=== PATIENT | female | born 1975 | race African-American/Black ===

== ENCOUNTER 2017-02-10 05:10 | Day surgery (SDC) | payer OTHER ==
[2017-02-06 15:30] VITALS: BMI 32.5
[2017-02-10] MEDS ORDERED: PROPOFOL 20 ML ONE (10:05)
[2017-02-10] MEDS ORDERED: MIDAZOLAM HCL 2 MG/2 ML SINGLE DOSE VIAL ONE ×2 (10:05→11:45)
[2017-02-10] MEDS ORDERED: LIDOCAINE HCL 2% (20ML MULTI-DOSE VIAL) NR ONE (10:05)
[2017-02-10] MEDS ORDERED: ROCURONIUM BROMIDE 50 MG/5 ML VIAL ONE (10:07)
[2017-02-10] MEDS ORDERED: KETOROLAC TROMETHAMINE 30 MG/1 ML VIAL ONE (12:11)
[2017-02-10] MEDS ORDERED: oxyCODONE HCL 5 MG TABLET PO PRN (12:44)
[2017-02-10] MEDS ORDERED: IBUPROFEN 800 MG/8 ML IJ IVPB PRN (12:44)
[2017-02-10] MEDS ORDERED: IBUPROFEN 600 MG TABLET (FP) PO PRN (12:44)
[2017-02-10] MEDS ORDERED: ONDANSETRON 4 MG/2 ML VIAL IVPB PRN (12:44)
[2017-02-10] MEDS ORDERED: ELECTROLYTE-148 SOLN 1,000 ML IV SCH (12:45)
--- NOTE | 2017-02-10 12:50 | HP ---
History & Physical Update - History History: No Change - Physical Physical: No Change - Assessment Assessment: No Change - Plan Plan: No Change (Consent signed and witnessed)
--- NOTE | 2017-02-10 12:55 | OP ---
Operative Note - Note: Operative Date: 02/10/17 Pre-Operative Diagnosis: 41 yo P3 with dysfunctional bleeding, history of endometrial hyperplasia Operation: Hysteroscopy/Polypectomy/D&C Findings: Overgrown endometrium, several endometrial polyps Bilateral ostia visualized Post-Operative Diagnosis: Same as Pre-op Surgeon: Briseida Ovalle Anesthesiologist/BURNER MACHINE OPERATOR: Ernie Alvares Anesthesia: MAC Specimens Removed: 1. Polyps. 2. Endometrial curettings Estimated Blood Loss (mls): 10 Drains & Tubes with Location: Fluid defficit 160cc Drains, Volume Out (mls): 75 Fluid Volume Replaced (mls): 400 Operative Report Dictated: Yes
[2017-02-10] MEDS ORDERED: PROMETHAZINE HCL 25 MG/1 ML VIAL IVPUSH PRN (12:57)
[2017-02-10] MEDS ORDERED: LACTATED RINGERS SOLUTION 1,000 ML IV SCH (13:00)
[2017-02-10 17:32] VITALS: BP 100/64; PULSE 68; TEMP 97.8
--- NOTE | 2017-02-11 13:38 | PATH ---
Surgical Pathology Report Patient Name: AMOS HERCULES [facility]. Rec. #: [id number] /Age/Gender: 1975 (Age: 41) / F Account: [id number] Location: [facility] SURGICAL Taken: 02/10/2017 Received: 02/10/2017 Reported: 02/11/2017 Physicians: Briseida Ovalle M.D. Specimen(s) Received A: ENDOMETRIAL CURETTINGS B: ENDOMETRIAL POLYP Clinical History Dysfunctional uterine bleeding, history of endometrial hyperplasia Final Diagnosis A. ENDOMETRIUM, CURETTING: FOCAL AREA OF SIMPLE ENDOMETRIAL HYPERPLASIA WITHOUT ATYPIA, ARISING IN A BACKGROUND OF PROLIFERATIVE ENDOMETRIUM WITH AREAS CONSISTENT WITH PORTIONS OF BENIGN ENDOMETRIAL POLYP, AND PORTIONS MYOMETRIAL TISSUE. AREAS OF ENDOMETRIUM WITH STROMAL BREAKDOWN ARE PRESENT. ENDOCERVICAL MUCOSA WITH CHRONIC INFLAMMATION AND SQUAMOUS METAPLASIA PRESENT. B. ENDOMETRIUM, POLYPECTOMY: BENIGN ENDOMETRIAL POLYP, AND ADDITIONAL PORTIONS OF PROLIFERATIVE ENDOMETRIUM WITH FOCAL STROMAL BREAKDOWN. Comment: Recommend correlation with clinical findings and follow up as clinically indicated. Electronically Signed Favian Rice M.D. Gross Description A. Received in formalin labeled "endometrial curetting" and a 4.5 x 3.5 x 0.4 cm aggregate of read red soft tissue fragments admixed with blood clot. The formalin is filtered and the specimen is entirely submitted in 3 cassettes. B. Received in formalin labeled "endometrial polyp," is a 1.3 x 1.3 x 0.4 cm aggregate of read-red soft tissue fragments. The formalin is filtered and the specimen is entirely submitted in one cassette. /02/10/201702/10/2017
--- NOTE | 2017-02-12 18:39 | OP ---
DATE OF OPERATION: 02/10/2017 PREOPERATIVE DIAGNOSIS: A 41-year-old para 3 with dysfunctional bleeding and history of endometrial hyperplasia. POSTOPERATIVE DIAGNOSIS: A 41-year-old para 3 with dysfunctional bleeding and history of endometrial hyperplasia. OPERATION: Hysteroscopy, polypectomy, dilation and curettage. FINDINGS: Overgrown endometrium with several endometrial polyps and endometrial scarring. Bilateral ostia visualized. SURGEON: Ketty Benjamin M.D. ANESTHESIOLOGIST: Ernie Alvares M.D. ANESTHESIA: MAC SPECIMENS: Removed: 1. Polyp. 2. Endometrial curettings. DESCRIPTION OF OPERATIVE PROCEDURE: After ensuring informed consent, patient was brought to the operating room where she was placed in dorsal lithotomy position. Perineum and vagina were prepped in the sterile fashion. Patient was draped. Bladder was emptied with red rubber catheter draining 75 mL of urine clear. Since speculums were placed in the anterior and posterior fornix, anterior cervical loop was articulated with single tooth tenaculum and cervix was gradually dilated with Pulido dilators up to gauge 19. The 5-mm, 30-degree scope was introduced into the uterus atraumatically and uterine contents were surveyed. The endometrium was found to be overgrown with several polyps, and scar tissue inside the serrated gauge 2 curet was used to remove polyps and perform endometrial curettage until the endometrium was found to be gritty. Hysteroscope was reintroduced into the uterus. Uterus was found to be intact and free of excessive tissue. All instruments were removed from the vagina. Fluid deficit was found to be 160 mL. Estimated blood loss 10 mL. Fluid replaced 400 mL. Patient was brought to the recovery room in stable condition and extubated. KETTY BENJAMIN M.D. SUNNY/[id number] MTDD
== END 2017-02-10 15:30 | disposition home or self-care (01) ==
LOC: JASU-SURG 05:10
PROVIDERS: ATTEND Obstetrics & Gynecology
PROC: 0UB98ZX Excision of Uterus, Via Natural or Artificial Opening Endoscopic, Diagnostic (ICD-10-PCS; principal; 2017-02-10 11:00)
PROC: 0UDB8ZX Extraction of Endometrium, Via Natural or Artificial Opening Endoscopic, Diagnostic (ICD-10-PCS; 2017-02-10 11:00)
DX: N93.8 Other specified abnormal uterine and vaginal bleeding (principal); N84.0 Polyp of corpus uteri
CPT/HCPCS: 84703; 88305-TC; 94760

== ENCOUNTER 2018-07-03 08:40 | Emergency (ER) | payer OTHER ==
[2018-07-03] MEDS ORDERED: IBUPROFEN 600 MG TABLET (FP) PO ONE ×2 (08:56→08:59)
[2018-07-03] MEDS ORDERED: PSEUDOEPHEDRINE HCL 30 MG TABLET ONE (08:59)
[2018-07-03] MEDS ORDERED: PSEUDOEPHEDRINE HCL 30 MG TABLET PO ONE (09:00)
--- NOTE | 2018-07-03 09:01 | PDOC ---
History of Present Illness - General Chief Complaint: Sore Throat Stated Complaint: SORE THROAT,COUGH Time Seen by Provider: 07/03/18 08:45 History Source: Patient Exam Limitations: No Limitations - History of Present Illness Initial Comments: 07/03/18 08:57 42 female no past medical history here today complaining of cough and nasal congestion for 2 days. Denies fevers chills no nausea no vomiting has not taking anything for her symptoms prior to arrival. No sick contacts or travel patient states her cough was productive of some phlegm did notice some faint blood streaks today no history of asthma does smoke occasionally Past History - Past Medical History Allergies/Adverse Reactions: Allergies Allergy/AdvReac Type Severity Reaction Status Date / Time No Known Allergies Allergy Verified 07/03/18 08:41 Home Medications: Ambulatory Orders Levonorgestrel [Mirena] 1 each IY ASDIR 07/03/18 Anemia: No Asthma: No Cancer: No Cardiac Disorders: No CVA: No COPD: No CHF: No Dementia: No Diabetes: No GI Disorders: No Disorders: No HTN: No Hypercholesterolemia: No Liver Disease: No Seizures: No Thyroid Disease: No - Surgical History Abdominal Surgery: Yes Appendectomy: No Cardiac Surgery: No Cholecystectomy: Yes Lung Surgery: No Neurologic Surgery: No Orthopedic Surgery: Yes (Left 5th toe surgery,Left Knee Arthroscopy) - Reproductive History Cervical CA: No Dysfunctional Uterine Bleeding: No Ectopic : No Polycystic Ovaries: No Tubal Ligation: No - Suicide/Smoking/Psychosocial Hx Smoking Status: Yes Smoking History: Current some day smoker Have you smoked in the past 12 months: Yes Number of Cigarettes Smoked Daily: 0 If you are a former smoker, when did you quit?: one week ago Information on smoking cessation initiated: Yes 'Breaking Loose' booklet given: 07/03/18 Hx Alcohol Use: No Drug/Substance Use Hx: No Substance Use Type: None Hx Substance Use Treatment: No Review of Systems - Review of Systems Constitutional: No: Chills, Diaphoresis, Fever HEENTM: Yes: Nose Congestion, Throat Pain Respiratory: Yes: Cough Cardiac (ROS): No: Chest Pain Neurological: No: Headache, Numbness Psychiatric: No: Depression All Other Systems: Reviewed and Negative *Physical Exam - Vital Signs Last Vital Signs Temp Pulse Resp BP Pulse Ox 98.5 F 97 H 20 127/85 100 07/03/18 08:41 07/03/18 08:41 07/03/18 08:41 07/03/18 08:41 07/03/18 08:41 - Physical Exam Comments: 07/03/18 08:58 Awake alert no acute distress throat no tonsillar exudates no urinary erythema uvula is midline lungs are clear bilaterally no wheezes no crackles appreciated heart is regular without any murmurs rubs or gallops extremities are warm and well-perfused legs no edema skin warm dry no rash neurologically alert and oriented 3 gait is normal speech is clear ED Treatment Course - RADIOLOGY Radiology Studies Ordered: Category Date Time Status CHEST PA & LAT [RAD] Stat Radiology 07/03/18 08:54 Ordered Medical Decision Making - Medical Decision Making 07/03/18 08:59 Differential diagnosis includes viral URI, viral pharyngitis, pneumonia plan x- ray will treat nasal congestion with Sudafed Motrin for the patient's throat pain if x-rays negative likely DC home with follow-up with her PCP *DC/Admit/Observation/Transfer - Discharge Dispostion Condition at time of disposition: Improved - Referrals - Patient Instructions Printed Discharge Instructions: DI for Viral Upper Respiratory Infection -- Adult Additional Instructions: you can take Motrin 600 mg for your pain every 6-8 hours as needed take with food. Drink plenty of liquids get plenty of rest. He continues any over-the- counter medications for cough and cold like symptoms return for any high fever or shortness of breath chest pains persistent vomiting or any concerns - Post Discharge Activity
[2018-07-03 09:02] VITALS: BP 127/85; PULSE 97; TEMP 98.5; BMI 34.0
== END 2018-07-03 09:31 | disposition home or self-care (01) ==
LOC: FER 08:40
DX: F17.210 Nicotine dependence, cigarettes, uncomplicated (principal); R05 Cough
CPT/HCPCS: 71046-TC-FY; 99282-25

== ENCOUNTER 2018-11-09 23:03 | Emergency (ER) | payer BC, OTHER ==
[2018-11-09 23:13] VITALS: BP 117/76; PULSE 117; TEMP 98.9; BMI 31.7
[2018-11-10] MEDS ORDERED: SODIUM CHLORIDE 1,000 ML IV STA (01:21)
[2018-11-10] MEDS ORDERED: ONDANSETRON 4 MG/2 ML VIAL IVPUSH STA (01:21)
--- NOTE | 2018-11-10 01:21 | PDOC ---
History of Present Illness - General Chief Complaint: Nausea/Vomiting Stated Complaint: VOMITING Time Seen by Provider: 11/10/18 00:26 Past History - Past Medical History Allergies/Adverse Reactions: Allergies Allergy/AdvReac Type Severity Reaction Status Date / Time No Known Allergies Allergy Verified 11/09/18 23:13 Home Medications: Ambulatory Orders Ibuprofen [Motrin -] 600 mg PO TID PRN #90 tablet MDD 3 07/03/18 Levonorgestrel [Mirena] 1 each IY ASDIR 07/03/18 Anemia: No Asthma: No Cancer: No Cardiac Disorders: No CVA: No COPD: No CHF: No Dementia: No Diabetes: No GI Disorders: No Disorders: No HTN: No Hypercholesterolemia: No Liver Disease: No Seizures: No Thyroid Disease: No - Surgical History Abdominal Surgery: Yes Appendectomy: No Cardiac Surgery: No Cholecystectomy: Yes Lung Surgery: No Neurologic Surgery: No Orthopedic Surgery: Yes (Left 5th toe surgery,Left Knee Arthroscopy) - Reproductive History Cervical CA: No Dysfunctional Uterine Bleeding: No Ectopic : No Polycystic Ovaries: No Tubal Ligation: No - Suicide/Smoking/Psychosocial Hx Smoking Status: Yes Smoking History: Never smoked Have you smoked in the past 12 months: No Number of Cigarettes Smoked Daily: 0 If you are a former smoker, when did you quit?: one week ago Information on smoking cessation initiated: No 'Breaking Loose' booklet given: 07/03/18 Hx Alcohol Use: Yes (social) Drug/Substance Use Hx: No Substance Use Type: None Hx Substance Use Treatment: No *Physical Exam - Vital Signs Last Vital Signs Temp Pulse Resp BP Pulse Ox 98.9 F 117 H 18 117/76 100 11/09/18 23:11 11/09/18 23:11 11/09/18 23:11 11/09/18 23:11 11/09/18 23:11 Moderate Sedation - Procedure Monitoring Vital Signs: Procedure Monitoring Vital Signs Temperature 98.9 F 11/09/18 23:11 Pulse Rate 117 H 11/09/18 23:11 Respiratory Rate 18 11/09/18 23:11 Blood Pressure 117/76 11/09/18 23:11 O2 Sat by Pulse Oximetry (%) 100 11/09/18 23:11 *DC/Admit/Observation/Transfer Diagnosis at time of Disposition: Vomiting Qualifiers: Vomiting type: unspecified Vomiting Intractability: unspecified Nausea presence : unspecified Qualified Code(s): R11.10 - Vomiting, unspecified - Discharge Dispostion Disposition: LEFT BEFORE [facility] - Referrals Referrals: Víctor Caba MD [Primary Care Provider] - - Patient Instructions - Post Discharge Activity
== END 2018-11-10 02:23 | disposition left against medical advice (07) ==
LOC: JER 23:03
DX: R11.10 Vomiting, unspecified (principal)
CPT/HCPCS: 99281-25

== ENCOUNTER 2018-11-11 09:42 | Emergency (ER) | payer BC ==
[2018-11-11 09:48] VITALS: BMI 31.6
[2018-11-11] MEDS ORDERED: ONDANSETRON 4 MG/2 ML VIAL IVPUSH ONE (10:07)
[2018-11-11] MEDS ORDERED: SODIUM CHLORIDE 1,000 ML IV STA (10:07)
--- NOTE | 2018-11-11 10:10 | PDOC ---
*Physical Exam - Vital Signs Last Vital Signs Temp Pulse Resp BP Pulse Ox 98.3 F 100 H 16 119/85 99 11/11/18 09:46 11/11/18 09:46 11/11/18 09:46 11/11/18 09:46 11/11/18 09:46 ED Treatment Course - LABORATORY CBC & Chemistry Diagram: 11/11/18 10:00 11/11/18 10:00 Medical Decision Making - Medical Decision Making 11/11/18 10:08 Pt seen by Midlevel Provider under my direct supervision Ancillary studies reviewed I agree with plan as outlined by Midlevel Provider *DC/Admit/Observation/Transfer Diagnosis at time of Disposition: Nausea & vomiting - Discharge Dispostion Disposition: HOME Condition at time of disposition: Improved - Prescriptions Prescriptions: Ondansetron HCl [Zofran] 4 mg PO TID PRN #12 tablet PRN Reason: Nausea And/Or Vomiting - Referrals Referrals: Víctor Caba MD [Primary Care Provider] - - Patient Instructions Printed Discharge Instructions: DI for Nausea -- Adult Additional Instructions: Take medications prescribed Eat bland food for the next 48 hours and may advance as tolerated Return to ED if symptoms worsen - Post Discharge Activity Forms/Work/School Notes: Back to Work
[2018-11-11] MEDS ORDERED: ONDANSETRON 4 MG/2 ML VIAL ONE (10:13)
[2018-11-11 10:23] LABS: URINE APPEARANCE TURBID; URINE BILIRUBIN NEGATIVE (<2.0 mg/dL); URINE GLUCOSE (UA) NEGATIVE (NEGATIVE); URINE KETONE NEGATIVE (NEGATIVE); URINE LEUK ESTERASE 2+ (NEGATIVE); URINE NITRITE NEGATIVE (NEGATIVE); URINE PROTEIN 2+ (NEGATIVE)
[2018-11-11 10:24] LABS: HCG,QUALITATIVE URINE Negative
[2018-11-11 10:28] LABS: BASO % 0.8 % (0-2.0); EOS % 2.2 % (0-4.5); HEMATOCRIT 44.6 % (32.4-45.2); HEMOGLOBIN 15.8 GM/dL (10.7-15.3); LYMPH % 39.7 % (8-40); MCH 31.4 pg (25.7-33.7); MCHC 35.3 g/dl (32.0-36.0); MEAN CELL VOLUME 88.8 fl (80-96); MEAN PLT VOLUME 8.7 fl (7.5-11.1); MONO % 15.8 % (3.8-10.2); NEUT % 41.5 % (42.8-82.8); PLATELET COUNT 209 K/MM3 (134-434); RBC 5.02 M/mm3 (3.60-5.2); RDW 13.4 % (11.6-15.6); WHITE BLOOD COUNT 3.6 K/mm3 (4.0-10.0)
[2018-11-11 10:34] LABS: URINE COLOR YELLOW
--- NOTE | 2018-11-11 10:37 | PDOC ---
History of Present Illness - General Chief Complaint: Vomiting/Diarrhea Stated Complaint: SICK Time Seen by Provider: 11/11/18 09:50 History Source: Patient Exam Limitations: No Limitations - History of Present Illness Travel History: No Initial Comments: 11/11/18 10:22 43-year-old female with no past medical history presents the ED with complaints of nausea, vomiting and diarrhea for the past 3 days. Patient states was here yesterday but left since she was waiting and went home. Patient states and symptoms continued she decided come to the ER. Patient denies fever, urinary complaints, irregular menses, recent travel or recent illness. Patient does work in a [employer] states many children did have the flu and stomach virus in the past few weeks. Timing/Duration: reports: getting worse, intermittent Pain Radiation: reports: no radiation Aggravating Factors: improves with: None Alleviating Factors: improves with: None Past History - Travel Traveled outside of the country in the last 30 days: No Close contact w/someone who was outside of country & ill: No - Past Medical History Allergies/Adverse Reactions: Allergies Allergy/AdvReac Type Severity Reaction Status Date / Time No Known Allergies Allergy Verified 11/11/18 09:45 Home Medications: Ambulatory Orders Levonorgestrel [Mirena] 1 each IY ASDIR 07/03/18 Ondansetron HCl [Zofran] 4 mg PO TID PRN #12 tablet 11/11/18 Anemia: No Asthma: No Cancer: No Cardiac Disorders: No CVA: No COPD: No CHF: No Dementia: No Diabetes: No GI Disorders: No Disorders: No HTN: No Hypercholesterolemia: No Liver Disease: No Seizures: No Thyroid Disease: No - Surgical History Abdominal Surgery: Yes Appendectomy: No Cardiac Surgery: No Cholecystectomy: Yes Lung Surgery: No Neurologic Surgery: No Orthopedic Surgery: Yes (Left 5th toe surgery,Left Knee Arthroscopy) - Reproductive History Cervical CA: No Dysfunctional Uterine Bleeding: No Ectopic : No Polycystic Ovaries: No Tubal Ligation: No - Suicide/Smoking/Psychosocial Hx Smoking Status: Yes Smoking History: Unknown if ever smoked Have you smoked in the past 12 months: No Number of Cigarettes Smoked Daily: 0 If you are a former smoker, when did you quit?: one week ago 'Breaking Loose' booklet given: 07/03/18 Hx Alcohol Use: Yes (social) Drug/Substance Use Hx: No Substance Use Type: None Hx Substance Use Treatment: No Patient Lives Alone: No Lives with/in: spouse/SO Review of Systems - Review of Systems Able to Perform ROS?: Yes Constitutional: Yes: Loss of Appetite HEENTM: No: Symptoms Reported Respiratory: No: Symptoms reported Cardiac (ROS): No: Symptoms Reported ABD/GI: Yes: Diarrhea, Nausea, Poor Appetite, Poor Fluid Intake, Vomiting. No: Abdominal cramping : No: Symptoms Reported Musculoskeletal: No: Symptoms Reported Integumentary: No: Symptoms Reported Neurological: No: Symptoms reported Endocrine: No: Symptoms Reported *Physical Exam - Vital Signs Last Vital Signs Temp Pulse Resp BP Pulse Ox 98.3 F 100 H 16 119/85 99 11/11/18 09:46 11/11/18 09:46 11/11/18 09:46 11/11/18 09:46 11/11/18 09:46 - Physical Exam General Appearance: Yes: Nourished, Appropriately Dressed. No: Apparent Distress HEENT: positive: EOMI, TMs Normal, Pharynx Normal. negative: Pale Conjunctivae Neck: positive: Normal Thyroid, Supple Respiratory/Chest: positive: Lungs Clear, Normal Breath Sounds. negative: Respiratory Distress, Accessory Muscle Use Cardiovascular: positive: Regular Rhythm, Tachycardia. negative: Murmur Gastrointestinal/Abdominal: positive: Soft. negative: Tenderness Integumentary: positive: Normal Color, Warm, Moist Neurologic: positive: Motor Strength 5/5 (ambulatory) Moderate Sedation - Procedure Monitoring Vital Signs: Procedure Monitoring Vital Signs Temperature 98.3 F 11/11/18 09:46 Pulse Rate 100 H 11/11/18 09:46 Respiratory Rate 16 11/11/18 09:46 Blood Pressure 119/85 11/11/18 09:46 O2 Sat by Pulse Oximetry (%) 99 11/11/18 09:46 ED Treatment Course - LABORATORY CBC & Chemistry Diagram: 11/11/18 10:00 11/11/18 10:00 - ADDITIONAL ORDERS Additional order review: Laboratory Results 11/11/18 10:00 Urine HCG, Qual Negative - Medications Given in the ED: ED Medications Discontinued Medications Generic Name Dose Route Start Last Admin Trade Name Freq PRN Reason Stop Dose Admin Ondansetron HCl 4 mg 11/11/18 10:07 11/11/18 10:20 Zofran Injection IVPUSH 11/11/18 10:08 4 mg ONCE ONE Administration Medical Decision Making - Medical Decision Making 11/11/18 10:26 Chief complaint: Nausea vomiting diarrhea for the past 2-3 days with decreased by mouth intake Exam: No abdominal tenderness. Patient tachycardic Plan: Urinalysis urine , labs, IV fluids, Zofran 11/11/18 10:53 Laboratory Tests 11/11/18 11/11/18 11/11/18 10:00 10:00 10:00 WBC 3.6 L Hgb 15.8 H Hct 44.6 D Plt Count 209 D Neutrophils % 41.5 L D Monocytes % 15.8 H D Sodium Potassium Chloride Carbon Dioxide Anion Gap BUN Creatinine Creat Clearance w eGFR Random Glucose Calcium Magnesium Total Bilirubin AST ALT Alkaline Phosphatase Urine Color Yellow Urine Appearance Turbid Urine pH 5.0 D Ur Specific Maceo 1.030 Urine Protein 2+ H Urine Ketones Negative Urine Urobilinogen 2.0 H Ur Leukocyte Esterase 2+ H Urine WBC (Auto) Pending Urine RBC (Auto) Pending Urine HCG, Qual Negative Influenza A (Rapid) Negative Influenza B (Rapid) Negative 11/11/18 10:00 WBC Hgb Hct Plt Count Neutrophils % Monocytes % Sodium 139 Potassium 3.4 L Chloride 107 Carbon Dioxide 25 Anion Gap 8 BUN 16 Creatinine 0.9 Creat Clearance w eGFR > 60 Random Glucose 120 H Calcium 9.8 Magnesium 2.1 Total Bilirubin 0.4 AST 26 ALT 36 Alkaline Phosphatase 82 Urine Color Urine Appearance Urine pH Ur Specific Maceo Urine Protein Urine Ketones Urine Urobilinogen Ur Leukocyte Esterase Urine WBC (Auto) Urine RBC (Auto) Urine HCG, Qual Influenza A (Rapid) Influenza B (Rapid) Ordered for K-Dur 40 mEq 11/11/18 12:30 Laboratory Tests 11/11/18 10:00 Urine WBC (Auto) 3-5 Urine RBC (Auto) 5-10 Urine culture ordered and sent. Patient be discharged home with Zofran. *DC/Admit/Observation/Transfer Diagnosis at time of Disposition: Nausea & vomiting - Discharge Dispostion Disposition: HOME Condition at time of disposition: Improved - Referrals Referrals: Víctor Caba MD [Primary Care Provider] - - Patient Instructions Printed Discharge Instructions: DI for Nausea -- Adult Additional Instructions: Take medications prescribed Eat bland food for the next 48 hours and may advance as tolerated Return to ED if symptoms worsen - Post Discharge Activity Forms/Work/School Notes: Back to Work
[2018-11-11 10:49] LABS: ALBUMIN 4.2 g/dl (3.4-5.0); ALK PHOS 82 U/L (45-117); ANION GAP 8 MMOL/L (8-16); BILIRUBIN,TOTAL 0.4 mg/dL (0.2-1); BLOOD UREA NITROGEN 16 mg/dL (7-18); CALCIUM 9.8 mg/dL (8.5-10.1); CHLORIDE 107 mmol/L (98-107); CO2 25 mmol/L (21-32); CREATININE 0.9 mg/dL (0.55-1.3); GLUCOSE,RANDOM 120 mg/dL (74-106); LIPASE 172 U/L (73-393); MAGNESIUM 2.1 mg/dL (1.8-2.4); POTASSIUM 3.4 mmol/L (3.5-5.1); SGOT/AST 26 U/L (15-37); SGPT/ALT 36 U/L (13-61); SODIUM 139 mmol/L (136-145); TOT PROT 8.3 g/dl (6.4-8.2)
[2018-11-11] MEDS ORDERED: POTASSIUM CHLORIDE TABS 20 MEQ TABLET.ER (FP) PO ONE (10:52)
[2018-11-11] MEDS ORDERED: POTASSIUM CHLORIDE TABS 10 MEQ TABLET.ER (FP) ONE (11:05)
[2018-11-11 12:22] LABS: EPI CELLS 2+ /HPF (FEW)
[2018-11-11 12:23] LABS: URINE BACTERIA 1+ /hpf (NONE SEEN)
[2018-11-11 12:37] VITALS: BP 107/70; PULSE 80; TEMP 98.4
== END 2018-11-11 12:48 | disposition home or self-care (01) ==
LOC: JER 09:42
PROC: 3E033GC Introduction of Other Therapeutic Substance into Peripheral Vein, Percutaneous Approach (ICD-10-PCS; principal; 2018-11-11)
PROC: 3E0337Z Introduction of Electrolytic and Water Balance Substance into Peripheral Vein, Percutaneous Approach (ICD-10-PCS; 2018-11-11)
DX: R11.2 Nausea with vomiting, unspecified (principal)
CPT/HCPCS: 36415; 80053; 81003; 81015; 83690; 83735; 84703; 85025; 87086; 87804; 99282-25; J7030

== ENCOUNTER 2019-08-09 04:49 | Day surgery (SDC) | payer BC ==
[2019-08-08 09:59] VITALS: BMI 30.5
[2019-08-09] MEDS ORDERED: PROMETHAZINE HCL 25 MG/1 ML VIAL IVPB PRN (09:59)
[2019-08-09] MEDS ORDERED: oxyCODONE HCL 5 MG TABLET PO PRN ×2 (09:59→11:22)
[2019-08-09] MEDS ORDERED: ONDANSETRON 4 MG/2 ML VIAL IVPUSH PRN ×2 (09:59→11:22)
[2019-08-09] MEDS ORDERED: LACTATED RINGERS SOLUTION 1,000 ML IV SCH (10:00)
--- NOTE | 2019-08-09 11:21 | HP ---
History & Physical Update - History History: No Change - Physical Physical: No Change - Assessment Assessment: No Change - Plan Plan: No Change (H&P reviewed and without change Consent signed and witnessed)
[2019-08-09] MEDS ORDERED: IBUPROFEN 800 MG/8 ML IJ IVPB PRN (11:22)
[2019-08-09] MEDS ORDERED: IBUPROFEN 600 MG TABLET (FP) PO PRN (11:22)
--- NOTE | 2019-08-09 11:23 | OP ---
Operative Note - Note: Operative Date: 08/09/19 Pre-Operative Diagnosis: 43yo P3 with h/o Endometrial Hyperplasia, missplaced IUD, loss to f/up, Thick Endometrium, menometrorrhagia Operation: Hysteroscopy, Myomectomy, Polypectomy, D&C Findings: 1. Several Endometrial polyps 2. Posterior wall, low uterine segment fibroid - partially resected 3. Overgrown Endometrium Post-Operative Diagnosis: Same as Pre-op Surgeon: Briseida Ovalle Anesthesiologist/MARIONETTE PERFORMER: Rosas Berkowitz Anesthesia: MAC Specimens Removed: Fibroid, Polyp, endometrial shavings - in the same container Estimated Blood Loss (mls): 20 Instrument used (Debridements only): Symphion Hysteroscope Drains & Tubes with Location: FD 400cc Drains, Volume Out (mls): 100 Fluid Volume Replaced (mls): 200 Operative Report Dictated: Yes
[2019-08-09] MEDS ORDERED: ELECTROLYTE-148 SOLN 1,000 ML IV SCH (11:30)
[2019-08-09] MEDS ORDERED: PROPOFOL 20 ML ONE (11:34)
[2019-08-09] MEDS ORDERED: MIDAZOLAM HCL 2 MG/2 ML SINGLE DOSE VIAL ONE (11:34)
[2019-08-09] MEDS ORDERED: LIDOCAINE HCL/PF 2% SDV 5ML VIAL ONE (11:34)
[2019-08-09] MEDS ORDERED: KETOROLAC TROMETHAMINE 30 MG/1 ML VIAL ONE (12:47)
[2019-08-09] MEDS ORDERED: DEXAMETHASONE SOD PHOSPHATE 4 MG/1 ML VIAL ONE (12:47)
[2019-08-09 15:10] VITALS: TEMP 97.9
[2019-08-09 16:45] VITALS: BP 122/68; PULSE 60
--- NOTE | 2019-08-10 18:14 | OP ---
DATE OF OPERATION: 08/09/2019 PREOPERATIVE DIAGNOSIS: A 43-year-old para 3 with history of endometrial hyperplasia lost to follow up, currently thickened endometrium, menometrorrhagia. OPERATION: Hysteroscopy, myomectomy, polypectomy, dilation and curettage. FINDINGS: Several endometrial polyps, posterior wall lower uterine segment fibroid partially resected, overgrown endometrial lining. POSTOPERATIVE DIAGNOSIS: A 43-year-old para 3 with history of endometrial hyperplasia lost to follow up, currently thickened endometrium, menometrorrhagia. SURGEON: Ktety Benjamin MD ANESTHESIOLOGIST: Rosas Berkowitz MD ANESTHESIA: MAC. SPECIMENS REMOVED: Fibroid polyp, endometrial shavings in the same container. DESCRIPTION OF THE OPERATIVE PROCEDURE: After assuring informed consent, patient was brought to the operating room where she was placed in dorsal lithotomy position. Perineum and vagina were prepped and draped in sterile fashion. Cervix was visualized. Was placed in vaginal Saeed retractors. Cervical anterior lip was grasped with single-tooth tenaculum and gradually dilated with increasing in size dilators. Symphion hysteroscope was wide balanced, primed, and fully arranged, and introduced through the cervical canal without any difficulty with good visualization of intrauterine contents. The above findings were noted, and Symphion resectoscope was introduced through the operative channel. The entire endometrial cavity was shaved, and subsequently the posterior lower segment fibroid was resected to maximally level off the protrusion into the endometrial cavity. Excellent hemostasis was achieved. Estimated blood loss 20 mL. Patient received 200 mL of IV fluid, drained 100 mL of urine at the beginning of the procedure. Fluid deficit was calculated to be 100 mL. All instruments and sponge count was correct x2. Patient was brought to the recovery room in stable condition, extubated condition. KETTY BENJAMIN M.D. [id number]
--- NOTE | 2019-08-10 19:29 | PATH ---
Surgical Pathology Report Patient Name: AMOS HERCULES [facility]. Rec. #: [id number] /Age/Gender: 1975 (Age: 43) / F Account: [id number] Location: [facility] SURGICAL Taken: 08/09/2019 Received: 08/09/2019 Reported: 08/10/2019 Physicians: Briseida Ovalle M.D. Specimen(s) Received ENDOMETRIAL POLYP,FIBROID AND CURETTINGS Clinical History Endometrial polyp Final Diagnosis ENDOMETRIAL POLYP, CURETTING AND FIBROID: FRAGMENTS OF ENDOMETRIAL POLYP. SMOOTH MUSCLE BUNDLES, CONSISTENT WITH SUBMUCOSAL LEIOMYOMA. SEPARATE PROLIFERATIVE ENDOMETRIUM. Electronically Signed Kulwinder Banegas M.D. Gross Description Received in formalin labeled "endometrial polyp, curetting and fibroid," is a 3.5 x 2.5 x 0.3 cm aggregate of read soft tissue fragments. The formalin is filtered and the specimen is entirely submitted in 2 cassettes. DL/08/09/2019 saudi/08/09/2019
== END 2019-08-09 15:45 | disposition home or self-care (01) ==
LOC: JASU-SURG 04:49
PROVIDERS: ATTEND Obstetrics & Gynecology
PROC: 0UDB8ZX Extraction of Endometrium, Via Natural or Artificial Opening Endoscopic, Diagnostic (ICD-10-PCS; 2019-08-09)
PROC: 0UB98ZZ Excision of Uterus, Via Natural or Artificial Opening Endoscopic (ICD-10-PCS; principal; 2019-08-09 10:30)
PROC: 0UB98ZX Excision of Uterus, Via Natural or Artificial Opening Endoscopic, Diagnostic (ICD-10-PCS; 2019-08-09 10:30)
DX: D25.0 Submucous leiomyoma of uterus (principal); N84.0 Polyp of corpus uteri; R93.89 Abnormal findings on diagnostic imaging of other specified body structures; N92.1 Excessive and frequent menstruation with irregular cycle
CPT/HCPCS: 84703; 88305-TC; 94760

== ENCOUNTER 2023-03-18 00:55 | Emergency (ER) | payer BC ==
[2023-03-18 01:14] VITALS: BP 142/81; PULSE 113; RESP 18; TEMP 100.6; BMI 34.0
[2023-03-18] MEDS ORDERED: IBUPROFEN 600 MG TABLET (FP) PO ONE ×2 (01:24→01:29)
[2023-03-18] MEDS ORDERED: AMOXICILLIN 500 MG CAPSULE (FP) PO ONE (01:24)
[2023-03-18] MEDS ORDERED: AMOXICILLIN 250 MG CAPSULE ONE (01:29)
[2023-03-18 02:41] LABS: THROAT:GRP A STREP NOT DETECTED (NOTDETECTED)
== END 2023-03-18 01:40 | disposition home or self-care (01) ==
LOC: JER 00:55
DX: R50.9 Fever, unspecified (principal); M79.10 Myalgia, unspecified site; R07.0 Pain in throat; R05.9 Cough, unspecified; R53.83 Other fatigue; J02.0 Streptococcal pharyngitis; Z20.822 Contact with and (suspected) exposure to COVID-19
CPT/HCPCS: 0241U-QW; 87651; 99283-25